=== PATIENT | male | born 1970 | race Caucasian/White ===

== ENCOUNTER 2017-03-31 13:09 | Emergency (ER) | payer BC | END 2017-03-31 15:13 | disposition home or self-care (01) | LOC: ER 13:09 | DX: M54.6 Pain in thoracic spine (principal); F31.9 Bipolar disorder, unspecified; F43.10 Post-traumatic stress disorder, unspecified; F17.210 Nicotine dependence, cigarettes, uncomplicated | CPT/HCPCS: 72072 ==